=== PATIENT | female | born 1940 | race Caucasian/White ===

== ENCOUNTER → 2023-11-08 13:57 | Outpatient (REF) | payer OTHER, SELFPAY | LOC: DHCBC HW 13:57 | PROVIDERS: ATTENDING PHYSICIAN Internal Medicine Cardiovascular Disease; FAMILY PHYSICIAN Hospitalist | DX: R01.1 Cardiac murmur, unspecified (principal) | CPT/HCPCS: 93306 ==

== ENCOUNTER 2024-09-21 10:31 | Emergency (ER) | payer OTHER, SELFPAY ==
[2024-09-21 10:46] VITALS: BP 189/103
--- NOTE | 2024-09-21 10:48 | ED.GENMED ---
ED Provider Triage
<Christian Worley PA-C - Last Filed: 09/21/24 14:20>
-
Patient seen by provider in Triage?: Seen in Triage
Attestation: A medical screening examination has been initiated by a qualified medical provider. Based on the assessment performed at this time, it has been determined that an emergent medical condition may exist and the patient has been informed
that further medical evaluation and possible additional diagnostic testing may be needed.
HPI: 83-year-old female presenting to the ER after noticing her blood pressure was elevated this morning. Patient states she usually checks her blood pressure routinely. Patient states that she felt a little bit off this morning but does not have
any specific symptom. Denies chest pain, shortness of breath, headache, visual changes, focal weakness or numbness. She does state on she excellently missed an entire day of her medications. Restarted taking her medication yesterday.
Labs and EKG ordered. Patient is otherwise stable. Blood pressure in triage is noted at 189/103.
GENERAL: Alert , in no apparent distress
EYE: No visual abnormalities.
NECK: Trachea midline
ENT: No visible abnormalities.
LUNGS: No acute respiratory distress
NEUROLOGICAL: Alert and oriented
SKIN: Skin intact. No visible changes.
MUSCULOSKELETAL: Moving extremities normally
PSYCH: Normal and appropriate interaction.
This is a medical evaluation conducted in person to initiate diagnostic evaluation and provide initial therapeutics. Please see further documentation by the treating clinician.
History of Present Illness
<Christian Worley PA-C - Last Filed: 09/21/24 14:20>
General
Chief Complaint: Blood Pressure Problem
Time Seen by Provider: 09/21/24 11:20
<JEFFY Jordan - Last Filed: 09/21/24 15:50>
General
Source: patient
Exam Limitations: none
Nursing documentation reviewed up to this point in time: agreed with
History of Present Illness
History of Present Illness:
Patient is an 83-year-old female who presents to the ER for elevated blood pressure. Patient reports she does have high blood pressure history and is on 3 blood pressure medications, olmesartan hydralazine and HCTZ. She is followed by Dr. Keith
for her BP.
She reports she is under a lot of stress recently and has had some increased pain related to her spinal stenosis. In addition to being under more stress and in more pain she recently skipped all of her medicines on she simply forgot. On
Monday her blood pressure was in the 200s but she did not want to come to the ER however it was again in the 200s today. She denies any associated headache but she felt mildly lightheaded which prompted her to come to the ER. She denies any chest
pain shortness of breath
Past History
<Christian Worley PA-C - Last Filed: 09/21/24 14:20>
Past History
ED Past Medical History: HTN, Hypercholesterolemia and Other (renal artery stenosis, TIA)
ED Past Surgical History: Cardiac (CABG �4) and Other (genny)
Social History
Tobacco: Non-smoker
Alcohol: Occasional
Drug: None
Living: alone
Employment: Retired
Family History
Family History: Other
Review of Systems
<JEFFY Jordan - Last Filed: 09/21/24 15:50>
Review of Systems
Allergies reviewed?: Yes
All Other Systems: ROS reviewed and negative except as documented in HPI and ROS
Constitutional: Reports no symptoms; Denies fever, fatigue or chills
Cardiac: Reports no symptoms; Denies chest pain, palpitations or syncope
ABD/GI: Reports no symptoms
: Reports no symptoms
Musculoskeletal: Reports no symptoms
Skin: Reports no symptoms
Neurological: Reports other (pt felt a little lightheaded ); Denies dizzy or headache
Psychiatric: Reports no symptoms
Phy Exam
<JEFFY Jordan - Last Filed: 09/21/24 15:50>
General Physical Exam
General Presentation: no apparent distress
General age: appears stated age
General Skin: warm and dry
General Habitus: normal
General Mental: alert
General Hydration: appears well hydrated
Cardiovascular Exam
Cardiovascular Exam: regular rate/rhythm, no murmur and normal peripheral pulses
Pulmonary Exam
Pulmonary Exam: lungs clear and no respiratory distress
Neurological Exam
Neurological Exam: alert and oriented x3
Musculoskeletal Exam
Musculoskeletal Exam: full ROM and other
Skin Exam
Skin Exam: normal color and warm/dry
Psychiatric Exam
Psychiatric Exam: normal mood/affect
Course
<Christian Worley PA-C - Last Filed: 09/21/24 14:20>
Orders/Labs/Results
Orders:
Orders
09/21/24 10:49
Electrocardiogram (*1) Urgent
Reason for Study: Hypertension, Benign
09/21/24 10:50
EKG- Treatment ONCE
09/21/24 11:02
Complete Blood Count/With Diff Urgent
Comprehensive Metabolic Panel Urgent
Troponin I Urgent
09/21/24 12:29
Vital Signs- Treatment ONCE
Frequency: Once
Abnormal Lab Results
09/21/24
11:02
MCH 31.1 H pg
(27.0-31.0)
Absolute Lymphs (auto) 1.1 L 10^3/uL
(1.2-3.4)
Absolute Monos (auto) 0.8 H 10^3/uL
(0.1-0.6)
Lymphocytes % 13.4 L %
(20.5-51.1)
Monocytes % 9.9 H %
(1.7-9.3)
Carbon Dioxide 32 H mmol/L
(22-30)
BUN 20 H mg/dl
(7-17)
Glucose 116 H mg/dl
(70-99)
09/21/24 11:02
09/21/24 11:02
Vital Signs
Initial and Last Documented VS:
Initial Vital Signs
Temp Pulse Resp BP Pulse Ox
98.0 F 66 18 189/103 98
09/21/24 10:46 09/21/24 10:46 09/21/24 10:46 09/21/24 10:46 09/21/24 10:46
Last Documented Vital Signs
Temp Pulse Resp BP Pulse Ox
98.0 F 58 18 198/84 95
09/21/24 10:46 09/21/24 12:33 09/21/24 10:46 09/21/24 12:33 09/21/24 12:33
<JEFFY Jordan - Last Filed: 09/21/24 15:50>
Orders/Labs/Results
Orders:
Orders
09/21/24 10:49
Electrocardiogram (*1) Urgent
Reason for Study: Hypertension, Benign
09/21/24 10:50
EKG- Treatment ONCE
09/21/24 11:02
Complete Blood Count/With Diff Urgent
Comprehensive Metabolic Panel Urgent
Troponin I Urgent
09/21/24 12:29
Vital Signs- Treatment ONCE
Frequency: Once
Abnormal Lab Results
09/21/24
11:02
MCH 31.1 H pg
(27.0-31.0)
Absolute Lymphs (auto) 1.1 L 10^3/uL
(1.2-3.4)
Absolute Monos (auto) 0.8 H 10^3/uL
(0.1-0.6)
Lymphocytes % 13.4 L %
(20.5-51.1)
Monocytes % 9.9 H %
(1.7-9.3)
Carbon Dioxide 32 H mmol/L
(22-30)
BUN 20 H mg/dl
(7-17)
Glucose 116 H mg/dl
(70-99)
09/21/24 11:02
09/21/24 11:02
Vital Signs
Initial and Last Documented VS:
Initial Vital Signs
Temp Pulse Resp BP Pulse Ox
98.0 F 66 18 189/103 98
09/21/24 10:46 09/21/24 10:46 09/21/24 10:46 09/21/24 10:46 09/21/24 10:46
Last Documented Vital Signs
Temp Pulse Resp BP Pulse Ox
98.0 F 58 18 198/84 95
09/21/24 10:46 09/21/24 12:33 09/21/24 10:46 09/21/24 12:33 09/21/24 12:33
<JEFFY Jordan - Last Filed: 09/21/24 15:50>
MDM/Problems Addressed
Differential Diagnosis Includes:
Not limited to hypertension
MDM/Problems Addressed:
Patient as documented has a history of high blood pressure and missed her pills on . Also she reports she is under a lot of stress and does have some pain related to her back pain which is chronic. She was concerned about her blood
pressure and presented here to the ER.
she denies any headache chest pain shortness of breath. She presents to the ER awake alert no acute distress she is hypertensive however nontachycardic and mentating normally. Again she denies any headache she is closely followed by family doctor
and Dr. Keith who manages her blood pressure. With patient being asymptomatic here in the ER and no complaints of headache or neurological deficit will safely discharge home with outpatient by family doctor for continued monitoring and treatment
of her blood pressure. She has no other her creatinine is normal. No cp
Chronic conditions affecting care:
htn
<JEFFY Jordan - Last Filed: 09/21/24 15:50>
*Pulse Oximetry
Patient hypoxic: no
*EKG
Interpreted by ED Provider?: Yes
Heart Rate: 70
Rate: normal
Rhythm: sinus
Ischemia: no ischemia
*Critical Care Note
Total Time (30-74mins, 75-104mins- exclusive of procedures): Not Applicable
ED Attending Note
<Christian Worley PA-C - Last Filed: 09/21/24 14:20>
-
Portions of this chart may have been created with voice recognition software.� Occasional wrong word or��sound alike� substitutions may have occurred due to the inherent limitations of voice recognition software.
Discharge Plan
Departure
Patient Disposition: Home (Routine Discharge)
Date of Disposition: 09/21/24
Time of Disposition: 12:59
Patient with high blood pressure during this ER visit?: Yes
Discharge Problem:
Hypertension
Instructions: High Blood Pressure (DC)
Prescriptions:
No Action
nitroglycerin 0.4 MG tablet, sublingual
0.4 mg sublingual [id number] PRN (Reason: chest pain)
Patient Comments:
patient states its been a year since last took
sertraline 50 MG tablet
50 mg PO DAILY
clopidogrel 75 MG tablet
75 mg PO NOON
atorvastatin 40 MG tablet
40 mg PO HS
nifedipine [Procardia XL] 90 MG tablet extended release 24hr
90 mg PO QPM
labetalol 100 MG tablet
100 mg PO BID
docusate sodium 100 MG capsule
100 mg PO BID 0RF
losartan 100 MG tablet
100 mg PO BID 0RF
oxycodone 5 MG tablet
5 mg PO Q4HPRN PRN (Reason: mod sev pain) Qty: 15 0RF
melatonin 5 MG tablet
5 mg PO HSPRN PRN (Reason: sleep) 0RF
Referrals:
Ilir Goncalves MD [Family Provider] -
Dex Keith MD [Active] -
Activity Restrictions/Additional Instructions:
As discussed please follow-up with your family doctor as well as Dr. Keith for further evaluation management of your blood pressure return if any worsening of symptoms
Discharge Date and Time
Print Language: ESTONIAN
[2024-09-21 11:19] LABS: % Basophils 0.4 % (0-2); % Eosinophils 0.6 % (0-6); % Immature Granulocytes 0.5 % (0-0.5); % Lymphocytes 13.4 % (20.5-51.1); % Monocytes 9.9 % (1.7-9.3); % Neutrophils 75.2 % (42.2-75.2); Absolute Eosinophils 0.1 10^3/uL (0-0.7); Absolute Lymphocytes 1.1 10^3/uL (1.2-3.4); Absolute Monocytes 0.8 10^3/uL (0.1-0.6); Absolute Neutrophils 6.1 10^3/uL (1.4-6.5); Hematocrit 39.6 % (37.0-47.0); Hemoglobin 13.4 g/dL (12.0-16.0); Mean Corp Hgb Conc. 33.8 g/dL (33.0-37.0); Mean Corpuscular Hgb 31.1 pg (27.0-31.0); Mean Corpuscular Volume 91.9 fL (81.0-99.0); Mean Platelet Volume 10.1 fL (7.4-10.4); Nucleated Red Blood Cells % 0 %; Platelet Count 240 10^3/uL (130-400); Red Blood Cell Count 4.31 10^6/uL (4.20-5.40); Red Cell Dist. Width 13.2 % (11.5-14.5); White Blood Cell Count 8.2 10^3/uL (4.8-10.8)
[2024-09-21 11:30] LABS: ALT (SGPT) 19 U/L (0-35); AST (SGOT) 34 U/L (14-36); Albumin 4.2 g/dl (3.5-5.0); Alkaline Phosphatase 64 U/L (38-126); Blood Urea Nitrogen 20 mg/dl (7-17); Calcium 9.7 mg/dl (8.4-10.2); Carbon Dioxide 32 mmol/L (22-30); Chloride 99 mmol/L (98-107); Glucose 116 mg/dl (70-99); Potassium 3.5 mmol/L (3.5-5.1); Sodium 139 mmol/L (135-145); Total Bilirubin 0.6 mg/dl (0.2-1.3); Total Protein 6.5 g/dl (6.3-8.2); eGFR > 60.00
[2024-09-21 11:39] LABS: Troponin I 0.013 ng/ml
[2024-09-21 12:33] VITALS: BP 198/84
== END 2024-09-21 13:00 | disposition home or self-care (01) ==
LOC: EMR 10:31
PROVIDERS: Physician Assistant Medical; EMERGENCY PHYSICIAN Emergency Medicine; FAMILY PHYSICIAN Internal Medicine
DX: I10 Essential (primary) hypertension (principal); R42 Dizziness and giddiness; Z73.3 Stress, not elsewhere classified; M48.00 Spinal stenosis, site unspecified; E78.00 Pure hypercholesterolemia, unspecified; I70.1 Atherosclerosis of renal artery; M54.9 Dorsalgia, unspecified; G89.29 Other chronic pain; Z79.899 Other long term (current) drug therapy; Z86.73 Personal history of transient ischemic attack (TIA), and cerebral infarction without residual deficits; Z95.1 Presence of aortocoronary bypass graft; Z88.8 Allergy status to other drugs, medicaments and biological substances
CPT/HCPCS: 99283; 80053; 84484; 85025; 93005

== ENCOUNTER 2025-01-08 15:02 | Outpatient (RCR) | payer OTHER, SELFPAY | END 2025-01-08 23:59 | disposition home or self-care (01) | LOC: RPT 15:02 | PROVIDERS: ATTENDING PHYSICIAN Internal Medicine | DX: R26.89 Other abnormalities of gait and mobility (principal); M48.00 Spinal stenosis, site unspecified; Z73.6 Limitation of activities due to disability; R26.2 Difficulty in walking, not elsewhere classified; M25.551 Pain in right hip; M62.81 Muscle weakness (generalized) | CPT/HCPCS: 97110; 97112; 97162 ==